=== PATIENT | female | born 1990 | race Caucasian/White ===

== ENCOUNTER 2016-12-11 17:55 | Outpatient (CLI) | payer MEDICAID ==
[~2016-12-11] VITALS: Ht 149.9 cm; Wt 82.1 kg
[~2016-12-11 17:55] MED LIST: ALPR0.5T PO; FERR-55 PO; NAPR-260 PO; PREN1TAB49 PO
[2016-12-11 18:16] VITALS: Ht 149.9 cm; Wt 82.1 kg
[2016-12-11 18:17] VITALS: BP 126/69; PULSE 91; RESP 19
[2016-12-11] MEDS ORDERED: LACTATED RINGER'S 1,000 ML IV SCH (18:30)
--- NOTE | 2016-12-11 18:54 | RADRPT ---
PROCEDURE: US OB biophysical profile. CLINICAL INDICATION: decreased movements, vaginal spotting TECHNIQUE: Multiple sonographic images of the pelvis were obtained. The images were reviewed on a PACS workstation. COMPARISON: No prior studies are available for comparison. FINDINGS: There is a single viable intrauterine gestation. Cardiac activity is present with 161 beats per min [place]. There is a vertex presentation. The placenta is anterior. There is no evidence of placental abruption. There is a normal amount of amniotic fluid with an STEFANIE = 13.8 cm. Biophysical profile: movement 2/2 tone 2/2. breathing 2/2 STEFANIE 2/2 Total 02/08 RPTAT: AA . IMPRESSION: Normal biophysical profile. . .Cosme Gordon MD, Date Time Electronically viewed and signed by .Cosme Gordon MD, MD on 12/11/2016 18:54 .S/
[2016-12-11 19:04] LABS: ADD SCAN DIFF NO
[2016-12-11 19:08] LABS: BASOPHILS % 0.1 % (0.0-2.0); EOSINOPHILS # 0.1 10^3/ul (0.0-0.5); EOSINOPHILS % 0.6 % (0.0-7.0); HEMATOCRIT 35.7 % (37.0-47.0); HEMOGLOBIN 11.6 g/dl (12.0-16.0); LYMPHOCYTES # 2.5 10^3/ul (0.8-2.9); LYMPHOCYTES % 31.4 % (15.0-51.0); MEAN CORPUSCULAR HGB CONC 32.5 g/dl (32.0-37.0); MEAN CORPUSCULAR VOLUME 92.2 fl (82.0-101.0); MEAN PLATELET VOLUME 10.7 fl (7.4-10.4); MONOCYTE # 0.5 10^3/ul (0.3-0.9); MONOCYTES % 6.9 % (0.0-11.0); NEUTROPHIL # 4.7 10^3/ul (1.6-7.5); NEUTROPHILS % 59.8 % (39.0-77.0); PLATELET COUNT 186 10^3/UL (140-415); RED BLOOD COUNT 3.87 10^6/ul (4.20-5.40); RED CELL DISTRIBUTION WIDTH 16.2 % (11.5-14.5); WHITE BLOOD COUNT 7.8 10^3/ul (4.8-10.8)
--- NOTE | 2016-12-11 20:10 | PN ---
Triage Information Date/Time Weeks of Gestation Patient is 6 para 4 at 36+3 weeks of gestation presents status post fall on her buttocks and decreased movement Patient did not hit her abdomen Prior OB history significant for 1 delivery at 29 weeks : 6 Para: 4 Diabetes: none Hypertention: none Objective Vital Signs Date Time Temp Pulse Resp B/P Pulse Ox O2 Delivery O2 Flow Rate FiO2 12/11/16 18:17 98.5 91 19 126/69 Room Air Exam NST is reactive [place] irregular Cervical exam per nurse soft and closed Results/Medications Result Diagram: 12/11/16 1840 Results 24 hrs Laboratory Tests Test 12/11/16 18:40 White Blood Count 7.8 Red Blood Count 3.87 L Hemoglobin 11.6 L Hematocrit 35.7 L Mean Corpuscular Volume 92.2 Mean Corpuscular Hemoglobin 30.0 Mean Corpuscular Hemoglobin Concent 32.5 Red Cell Distribution Width 16.2 H Platelet Count 186 Mean Platelet Volume 10.7 #H Neutrophils % 59.8 Lymphocytes % 31.4 Monocytes % 6.9 Eosinophils % 0.6 Basophils % 0.1 Nucleated Red Blood Cells % 0.0 Neutrophils # 4.7 Lymphocytes # 2.5 Monocytes # 0.5 Eosinophils # 0.1 Basophils # 0.0 Nucleated Red Blood Cells # 0.0 Blood type RH positive Medications Current Medications Lactated Ringer's (Lr) 1,000 ml @ 175 mls/hr [id number] IV Last administered on t 18:45; Admin Dose 175 MLS/HR; Start 12/11/16 at 18:30 Imaging Results PROCEDURE: US OB biophysical profile. CLINICAL INDICATION: decreased movements, vaginal spotting TECHNIQUE: Multiple sonographic images of the pelvis were obtained. The images were reviewed on a PACS workstation. COMPARISON: No prior studies are available for comparison. FINDINGS: There is a single viable intrauterine gestation. Cardiac activity is present with 161 beats per minute. There is a vertex presentation. The placenta is anterior. There is no evidence of placental abruption. There is a normal amount of amniotic fluid with an STEFANIE = 13.8 cm. Biophysical profile: movement 2/2 tone 2/2. breathing 2/2 STEFANIE 2/2 Total 02/08 RPTAT: AA . IMPRESSION: Normal biophysical profile. . .Cosme Gordon MD, Date Time Electronically viewed and signed by .Cosme Gordon MD, on 12/11/2016 18: 54 .S/ CC: MARG[facility] MD Assessment/Plan 36+3 weeks of gestation status post fall on her buttocks and decreased movement NST is reactive Biophysical profile 8 out of 8 Patient will be discharged home Instructed to follow-up with her DIRECTOR OF NURSING in 2-3 days MARGUERITE HEART MD Dec 11, 2016 20:10
--- NOTE | 2016-12-11 20:34 | TRIAGE ---
OB Triage Datetime Report Generated by CPN: 12/11/2016 20:34 Datetime: 12/11/2016 18:25 Stage of : OB Triage Labor Evaluation Frequency: 5-9 Monitor Mode: External Duration (sec)2399: 80-90 Quality: Moderate Pattern: Normal: <= 5 Contractions in 10 Minutes Resting Tone [place]: Relaxed Heart Rate FHR Baseline Rate: 165 Monitor Mode: External US Variability: Moderate 6-25 bpm Accelerations: 15X15 Decelerations: None Category: Category II Pain Assessment Pain Scale: 7 Pain Presence: Intermittent Pain Type: Pressure Pain Location: Abdomen Pain Relief Measures: Comfort Measures Datetime: 12/11/2016 18:20 Assessment Type: Triage Maternal Assessment Level of Consciousness: Fully Conscious DTR's/Clonus: DTRs 2+; No Clonus Headache: Denies Blurred Vision: No Respiratory Effort: Unlabored; Regular Rhythm; Equal Expansion Breath Sounds, Left: Clear and Equal Breath Sounds, Right: Clear and Equal Nausea/Vomiting: Denies RUQ Epigastric Pain: Denies Lower Extremities Edema: Bilateral Lower Extremities Degree: 1+ Upper Extremities Edema: None Facial Edema: None Fall Risk Assessment History of Falling: (0) No Secondary Diagnosis: (0) No Ambulatory Aid: (0) Bedrest/Nurse Assist IV Therapy: (0) No Gait: (0) Normal/Bedrest/Immobile Mental Status: (0) Oriented to Own Ability Fall Score: 0 Fall Risk Score Definition: No Risk: No action required Datetime: 12/11/2016 18:13 Stage of : OB Triage Datetime: 12/11/2016 18:05 Time of Arrival: 12/11/2016 17:51 EGA: 36.3 Arrived By: Ambulatory Arrived From: Home Chief Complaint: Small clots when she wipes and UCs after fall. Movement: Decreased Contractions: Irregular Time Contractions Began: 12/11/2016 07:00 Contractions: 5-9 Rupture of Membranes: Denies Vaginal Bleeding: Clots Vaginal Discharge: Present Recent Sexual Intercouse: Yes Abdominal Trauma: Fall Patient Complaints: Contractions; Other Additional Patient Complaints: Pressure when standing and walking Time Provider Notified: 12/11/2016 18:13 Provider Notified: Janice Initial Plan: EFM, Harry, Notify MD, monitor bleeding - Orders for BPP and IV start with Type _ Scre en and CBC to be done
== END 2016-12-11 20:33 | disposition home or self-care (01) ==
LOC: OBT 17:55 → L-D 17:57 → OBT 20:33
PROVIDERS: ATTEND Obstetrics & Gynecology
DX: O36.8130 Decreased fetal movements, third trimester, not applicable or unspecified (principal); Z3A.36 36 weeks gestation of pregnancy
CPT/HCPCS: 36415; 76818; 85025; 86850; 86900; 86901; 96360; J7120; Z7500; G0463

== ENCOUNTER 2016-12-17 20:25 | Outpatient (CLI) | payer MEDICAID ==
[~2016-12-17] VITALS: Ht 149.9 cm; Wt 82.1 kg
[~2016-12-17 20:25] MED LIST changes: -ALPR0.5T PO; -NAPR-260 PO
[2016-12-17 21:13] VITALS: Ht 149.9 cm; Wt 82.1 kg
[2016-12-17 21:15] VITALS: BP 122/71; PULSE 96; RESP 18
--- NOTE | 2016-12-17 23:02 | QN ---
Documentation Comment iup 36 weeks co of ucx vss exam wnl nst reactive a/p iup 37 weeks false labor [facility] HAN ALLISON MD Dec 17, 2016 23:02
--- NOTE | 2016-12-17 23:29 | RADRPT ---
PROCEDURE: OB ultrasound for biophysical profile CLINICAL INDICATION: tachycardia. TECHNIQUE: Multiple sonographic images of the gravid uterus performed. The images were reviewed on a PACS workstation. COMPARISON: 12/11/2016 FINDINGS: A single live intrauterine is identified with heart rate of 148 bpm. Fet us is in a cephalic presentation. Placenta is located fundal and anterior. Biophysical profile: breathing movement = 2/2 tone = 2/2 motion = 2/2 STEFANIE = 2/2 STEFANIE = 12.54 cm. IMPRESSION: 1. Single live intrauterine gestation. 2. Biophysical profile = 8/8. 3. STEFANIE = 12.54 cm. RPTAT: HMVK .Jose Fernandes MD, Date Time Electronically viewed and signed by .Jose Fernandes MD, MD on 12/17/2016 23:28 .K/
--- NOTE | 2016-12-17 23:42 | TRIAGE ---
OB Triage Datetime Report Generated by CPN: 12/17/2016 23:42 Datetime: 12/17/2016 22:52 Heart Rate FHR Baseline Rate: 145 Monitor Mode: External US FHR Baseline Changes: No Baseline Change Variability: Moderate 6-25 bpm Accelerations: 15X15 Datetime: 12/17/2016 22:03 Heart Rate FHR Baseline Rate: 145 Monitor Mode: External US Datetime: 12/17/2016 21:57 Stage of : OB Triage Datetime: 12/17/2016 21:34 Stage of : OB Triage Monitor Mode: External Quality: Mild Pattern: Normal: <= 5 Contractions in 10 Minutes Resting Tone [place]: Relaxed Heart Rate FHR Baseline Rate: 145 Monitor Mode: External US Variability: Moderate 6-25 bpm Accelerations: 15X15 Decelerations: None Datetime: 12/17/2016 21:04 Monitor Mode: External Quality: Mild Pattern: Normal: <= 5 Contractions in 10 Minutes Resting Tone [place]: Relaxed Heart Rate FHR Baseline Rate: 180 Monitor Mode: External US FHR Baseline Changes: Tachycardia Accelerations: 15X15 Decelerations: None Category: Category II Vaginal Exam Dilatation (cms): 1.5 Effacement (%): 80 Station: -1 Exam By: E Loc Membrane Status: Intact Amniotic Fluid Amount: None Amniotic Fluid Odor: None Vaginal Bleeding: None Cervix, Consistency: Soft Cervix, Position: Posterior Presentation 'A': Cephalic Datetime: 12/17/2016 20:56 Monitor Mode: External US Comments: Baby extremely overactive and difficult to monitor Datetime: 12/17/2016 20:43 Stage of : OB Triage Maternal Assessment Level of Consciousness: Fully Conscious Headache: Denies Blurred Vision: No Respiratory Effort: Unlabored Nausea/Vomiting: Denies RUQ Epigastric Pain: Denies Facial Edema: None Labor Evaluation Frequency: placed Monitor Mode: External Resting Tone [place]: Relaxed Monitor Mode: External US Comments: FHT 180 Pain Assessment Pain Scale: 8 Pain Presence: Intermittent Pain Type: Cramping; Pressure; Ache Pain Location: Abdomen; Back; Perineum Datetime: 12/17/2016 20:30 Time of Arrival: 12/17/2016 20:20 EGA: 37.2 Arrived By: Wheelchair Arrived From: Home Chief Complaint: [id number] w/ c/o vag pressure and back pain. Hx 29 wk delivery Movement: Present Contractions: Irregular Time Contractions Began: 12/17/2016 14:00 Contractions: q10 Rupture of Membranes: Denies Vaginal Bleeding: None Vaginal Discharge: Denies Recent Sexual Intercouse: Denies Abdominal Trauma: Not Applicable Patient Complaints: Cramping; Back Pain; Other Time Provider Notified: 12/17/2016 21:57 Provider Notified: Dr Spence Initial Plan: EFM,SVE,BPP Datetime: 12/11/2016 20:25 Stage of : OB Triage Datetime: 12/11/2016 20:02 Comments: Monitor off waiting for lab results Datetime: 12/11/2016 19:50 Vaginal Exam Dilatation (cms): 0.0 Effacement (%): 50 Station: -3 Exam By: Latasha Ramirez Status: Intact Vaginal Bleeding: None Cervix, Consistency: Soft Cervix, Position: Posterior Presentation 'A': Cephalic Datetime: 12/11/2016 19:44 Quality: Mild Pattern: Normal: <= 5 Contractions in 10 Minutes Resting Tone [place]: Relaxed Monitor Mode: External US Datetime: 12/11/2016 19:21 Stage of : OB Triage Maternal Assessment Level of Consciousness: Fully Conscious Headache: Denies Blurred Vision: No Nausea/Vomiting: Denies RUQ Epigastric Pain: Denies Monitor Mode: External Quality: Mild Pattern: Normal: <= 5 Contractions in 10 Minutes Resting Tone [place]: Relaxed Heart Rate FHR Baseline Rate: 140 Monitor Mode: External US FHR Baseline Changes: No Baseline Change Variability: Moderate 6-25 bpm Accelerations: 15X15 Decelerations: None Category: Category I Pain Assessment Pain Scale: 4 Pain Presence: Intermittent Pain Type: Cramping Pain Location: Abdomen Datetime: 12/11/2016 18:20 Fall Risk Assessment Fall Score: 0 Fall Risk Score Definition: No Risk: No action required Datetime: 12/11/2016 18:05 EGA: 36.3
== END 2016-12-17 23:51 | disposition home or self-care (01) ==
LOC: OBT 20:25 → L-D 20:25 → OBT 23:51
PROVIDERS: ATTEND Obstetrics & Gynecology
DX: O47.03 False labor before 37 completed weeks of gestation, third trimester (principal); O76 Abnormality in fetal heart rate and rhythm complicating labor and delivery; Z3A.36 36 weeks gestation of pregnancy
CPT/HCPCS: 76818; Z7500; G0463

== ENCOUNTER 2016-12-20 21:26 | Outpatient (CLI) | payer MEDICAID ==
[~2016-12-20] VITALS: Ht 149.9 cm; Wt 82.8 kg
[2016-12-20 21:52] VITALS: BP 134/75; PULSE 82; RESP 18; Ht 149.9 cm; Wt 82.8 kg
--- NOTE | 2016-12-20 22:35 | RADRPT ---
PROCEDURE: OB ultrasound CLINICAL INDICATION: . OB ultrasound with fluid volume assessment. TECHNIQUE: Sonographic evaluation to assess the amniotic fluid volume was performed. Transabdomin al imaging of the gravid uterus was performed. COMPARISON: 12/17/2016 FINDINGS: The amniotic fluid index equals approximately 11.8 cm. heart rate: 158 Beats per minute. Presentation: Cephalic Placenta anterior IMPRESSION: Amniotic fluid index equals 11.8 cm. RPTAT: AADD .Fidel Muniz MD, MD Date Time Electronically viewed and signed by .Fidel Muniz MD, on 12/20/2016 22:35 .B/
--- NOTE | 2016-12-21 02:28 | TRIAGE ---
OB Triage Datetime Report Generated by CPN: 12/21/2016 02:28 Datetime: 12/21/2016 00:46 Labor Evaluation Frequency: IRREGULAR Monitor Mode: External Duration (sec)2399: 60-80 Quality: Mild Pattern: Normal: <= 5 Contractions in 10 Minutes Resting Tone [place]: Relaxed Heart Rate FHR Baseline Rate: 145 Monitor Mode: External US FHR Baseline Changes: No Baseline Change Variability: Moderate 6-25 bpm Accelerations: 15X15 Decelerations: None Category: Category I Datetime: 12/21/2016 00:00 Labor Evaluation Frequency: IRREGULAR Monitor Mode: External Duration (sec)2399: 100 Quality: Mild Pattern: Normal: <= 5 Contractions in 10 Minutes Resting Tone [place]: Relaxed Heart Rate FHR Baseline Rate: 135 Monitor Mode: External US FHR Baseline Changes: No Baseline Change Variability: Moderate 6-25 bpm Accelerations: 15X15 Decelerations: None Category: Category I Datetime: 12/20/2016 22:48 Labor Evaluation Frequency: IRREGULAR Monitor Mode: External Duration (sec)2399: 100 Quality: Mild Pattern: Normal: <= 5 Contractions in 10 Minutes Resting Tone [place]: Relaxed Heart Rate FHR Baseline Rate: 155 Monitor Mode: External US FHR Baseline Changes: No Baseline Change Variability: Moderate 6-25 bpm Accelerations: 15X15 Decelerations: None Category: Category I Datetime: 12/20/2016 22:15 Vaginal Exam Dilatation (cms): 2.0 Effacement (%): 80 Station: -3 Exam By: Nano PORTER RN Vaginal Bleeding: None Cervix, Consistency: Soft Cervix, Position: Posterior Datetime: 12/20/2016 22:00 Labor Evaluation Frequency: IRREGULAR Labor Evaluation Frequency: 0 Monitor Mode: External Duration (sec)2399: 60-100 Quality: Mild Pattern: Normal: <= 5 Contractions in 10 Minutes Resting Tone [place]: Relaxed Heart Rate FHR Baseline Rate: 155 Monitor Mode: External US FHR Baseline Changes: No Baseline Change Variability: Moderate 6-25 bpm Accelerations: 15X15 Decelerations: None Category: Category I Datetime: 12/20/2016 21:56 Comments: DUE TO PT SIZE FHT DIFFICULT TO TRACE Datetime: 12/20/2016 21:48 Stage of : OB Triage Time of Arrival: 12/21/2016 21:20 EGA: 37.6 Arrived By: Wheelchair Arrived From: Home Chief Complaint: CONTRACTIONS Movement: Present Time Contractions Began: 12/20/2016 12:00 Rupture of Membranes: Denies Vaginal Bleeding: Small Vaginal Discharge: Denies Recent Sexual Intercouse: Denies Abdominal Trauma: Not Applicable Time Provider Notified: 12/21/2016 21:30 Provider Notified: DR PRECIADO Initial Plan: CALL BECKY ALEXANDRE Maternal Assessment Level of Consciousness: Fully Conscious DTR's/Clonus: DTRs 2+; No Clonus Headache: Denies Blurred Vision: No Respiratory Effort: Unlabored; Regular Rhythm; Equal Expansion Breath Sounds, Left: Clear and Equal Breath Sounds, Right: Clear and Equal Nausea/Vomiting: Denies RUQ Epigastric Pain: Denies Lower Extremities Edema: Bilateral Lower Extremities Degree: None Upper Extremities Edema: None Degree: None Facial Edema: None Temperature Route: Oral Fall Risk Assessment History of Falling: (0) No Secondary Diagnosis: (0) No Ambulatory Aid: (0) Bedrest/Nurse Assist IV Therapy: (0) No Gait: (0) Normal/Bedrest/Immobile Mental Status: (0) Oriented to Own Ability Fall Score: 0 Fall Risk Score Definition: No Risk: No action required Monitor Mode: External Monitor Mode: External US Pain Assessment Pain Scale: 8 Pain Presence: Intermittent Pain Type: Contraction Pain Location: Abdomen; Back Datetime: 12/17/2016 20:30 EGA: 37.2 Datetime: 12/11/2016 18:20 Fall Score: 0 Fall Risk Score Definition: No Risk: No action required Datetime: 12/11/2016 18:05 EGA: 36.3
== END 2016-12-21 00:50 | disposition home or self-care (01) ==
LOC: OBT 21:26 → L-D 21:27 → OBT 12-21 00:50
PROVIDERS: ATTEND Obstetrics & Gynecology
DX: O62.9 Abnormality of forces of labor, unspecified (principal); Z3A.38 38 weeks gestation of pregnancy; O26.893 Other specified pregnancy related conditions, third trimester; R10.9 Unspecified abdominal pain
CPT/HCPCS: 76815; Z7500; G0463

== ENCOUNTER 2016-12-23 17:35 | Inpatient (IN) | payer MEDICAID ==
[~2016-12-23] VITALS: Ht 149.9 cm; Wt 82.2 kg
[2016-12-23 18:05] VITALS: Ht 149.9 cm; Wt 82.2 kg
[2016-12-23 18:06] VITALS: BP 119/70; PULSE 79
--- NOTE | 2016-12-23 18:28 | CONS ---
Date/Time of Note Date/Time of Note DATE: 12/23/16 TIME: 18:18 Consultation Date/Type/Reason Admit Date/Time Dec 23, 2016 at 18:13 Triage consult Reason for Consultation This patient is 26 years old 6 para 4 1 living 4 with 2 date of January 08, 2017 which makes her 37 weeks and 6 days now She is complaining of contractions On pelvic examination cervix is about 4-5 weeks dilated membrane is intact for this reason she will be admitted in the labor delivery room for observation and possible delivery Hx of Present Illness Current Medications Medications (Trade) Dose Ordered Sig/Pamela Route PRN Reason Start Time Stop Time Status Last Admin Dose Admin Lactated Ringer's (Lr) 1,000 ml @ 125 mls/hr Q8H IV 12/23/16 18:07 UNV Butorphanol Tartrate (Stadol) 1 mg Q2H PRN IV PAIN 12/23/16 18:30 UNV Butorphanol Tartrate (Stadol) 2 mg Q2H PRN IV PAIN 12/23/16 18:30 UNV Lidocaine 30 ml 30 ml ONCE PRN INJ EPISIOTOMY/TEARING 12/23/16 18:30 UNV Lactated Ringer's 1,000 ml @ 2,000 mls/hr Q30M PRN IV PRE-EPIDURAL BOLUS 12/23/16 18:30 UNV Oxytocin/Lactated Ringer's 500 ml @ 0 mls/hr ONCE PRN IV For Hemorrhage Management 12/23/16 18:30 UNV Methylergonovine Maleate (Methergine) 0.2 mg ONCE PRN IM VAGINAL BLEEDING 12/23/16 18:30 UNV Carboprost Tromethamine (Hemabate) 250 mcg ONCE PRN IM VAGINAL BLEEDING 12/23/16 18:30 UNV Misoprostol (Cytotec) 1,000 mcg ONCE PRN MN VAGINAL BLEEDING 12/23/16 18:30 UNV Constitutional: No chills, No diaphoresis, No disoriented, No febrile, No improved, No no complaints, No other, No poor po, No requiring IVF, No requiring O2 Eyes: No discharge, No no complaints, No other, No pain, No redness, No visual change ENT: No bleeding, No congestion, No discharge, No dysphagia, No no complaints, No other, No pain, No sore throat Respiratory: No cough, No no complaints, No other, No pain, No pleuritic pain, No shortness of breath, No sputum, No wheezing Cardiovascular: No chest pain, No edema, No lightheadedness, No no complaints, No orthopenea, No other, No palpitations, No paroxysmal nocturnal dyspnea Gastrointestinal: No blood, No constipation, No decreased appetite, No diarrhea , No flatus, No nausea, No no complaints, No other, No pain, No passing stool, No vomiting Genitourinary: other (Cervix is 4-5 cm dilated 60-70% effaced about -2 station with intact membranes), No bleeding, No discharge, No dysuria, No flank pain, No hematuria, No no complaints Additional Comments She has gestational diabetes mellitus which is diet-controlled came. Came in with the contractions Her past deliveries were all spontaneous vaginal without any complications In reviewing her lab works during this course ,they are all normal except for gestational diabetes, blood type is O+, VDRL is negative and the rest of the tests are within normal limits Plan : we will keep her in labor delivery room; If she is in labor will deliver her other than that she might be discharged to return when in active labor Social History Smoking Status: Never smoker Exam/Review of Systems Vital Signs Vitals Vital Signs Date Time Temp Pulse Resp B/P Pulse Ox O2 Delivery O2 Flow Rate FiO2 12/23/16 18:06 98.2 79 119/70 Medications Medications Current Medications Lactated Ringer's (Lr) 1,000 ml @ 125 mls/hr Q8H IV ; Start 12/23/16 at 18:07; Status UNV Butorphanol Tartrate (Stadol) 1 mg Q2H PRN IV PAIN; Start 12/23/16 at 18:30; Status UNV Butorphanol Tartrate (Stadol) 2 mg Q2H PRN IV PAIN; Start 12/23/16 at 18:30; Status UNV Lidocaine 30 ml 30 ml ONCE PRN INJ EPISIOTOMY/TEARING; Start 12/23/16 at 18:30; Status UNV Lactated Ringer's 1,000 ml @ 2,000 mls/hr Q30M PRN IV PRE-EPIDURAL BOLUS; Start 12/23/16 at 18:30; Status UNV Oxytocin/Lactated Ringer's 500 ml @ 0 mls/hr ONCE PRN IV For Hemorrhage Management; Start 12/23/16 at 18:30; Status UNV Methylergonovine Maleate (Methergine) 0.2 mg ONCE PRN IM VAGINAL BLEEDING; Start 12/23/16 at 18:30; Status UNV Carboprost Tromethamine (Hemabate) 250 mcg ONCE PRN IM VAGINAL BLEEDING; Start 12/23/16 at 18:30; Status UNV Misoprostol (Cytotec) 1,000 mcg ONCE PRN [place] VAGINAL BLEEDING; Start 12/23/16 at 18:30; Status UNV MATEUSZ LU MD Dec 23, 2016 18:28
[2016-12-23] MEDS ORDERED: BUTORPHANOL 2 MG INJ IV PRN ×2 (18:30)
[2016-12-23] MEDS ORDERED: LACTATED RINGER'S 1,000 ML IV PRN (18:30)
[2016-12-23] MEDS ORDERED: OXYTOCIN 30 UNITS/LR 500 ML IV PRN (18:30)
[2016-12-23] MEDS ORDERED: MISOPROSTOL 200 MCG TAB PR PRN (18:30)
[2016-12-23] MEDS ORDERED: LIDOCAINE 1% (MPF) 30 ML INJ INJ PRN (18:30)
[2016-12-23] MEDS ORDERED: CARBOPROST 250 MCG INJ IM PRN (18:30)
[2016-12-23] MEDS ORDERED: METHYLERGONOVINE 0.2 MG INJ IM PRN (18:30)
[2016-12-23 19:19] LABS: ADD SCAN DIFF NO
[2016-12-23 19:20] LABS: BASOPHILS % 0.3 % (0.0-2.0); EOSINOPHILS % 0.4 % (0.0-7.0); HEMATOCRIT 34.8 % (37.0-47.0); HEMOGLOBIN 11.4 g/dl (12.0-16.0); LYMPHOCYTES # 2.1 10^3/ul (0.8-2.9); LYMPHOCYTES % 27.8 % (15.0-51.0); MEAN CORPUSCULAR HEMOGLOBIN 29.4 pg (29.0-33.0); MEAN CORPUSCULAR HGB CONC 32.8 g/dl (32.0-37.0); MEAN CORPUSCULAR VOLUME 89.7 fl (82.0-101.0); MONOCYTE # 0.4 10^3/ul (0.3-0.9); MONOCYTES % 5.8 % (0.0-11.0); NEUTROPHIL # 4.8 10^3/ul (1.6-7.5); PLATELET COUNT 208 10^3/UL (140-415); RED BLOOD COUNT 3.88 10^6/ul (4.20-5.40); RED CELL DISTRIBUTION WIDTH 15.4 % (11.5-14.5); WHITE BLOOD COUNT 7.4 10^3/ul (4.8-10.8)
[2016-12-23 19:36] LABS: PROTIME 13.2 Sec (12.2-14.2)
[2016-12-23 19:37] LABS: PARTIAL THROMBOPLASTIN TIME 26.4 Sec (25.0-35.0)
[2016-12-23] MEDS: LACTATED RINGER'S 1,000 ML IV SCH ×2 (20:06→22:46)
[2016-12-23] MEDS ORDERED: OXYTOCIN 30 UNITS/LR 500 ML IV SCH ×2 (22:00)
[2016-12-24] MEDS ORDERED: FENTAnyl 2MCG/ML-ROPIV 0.2% 100 ML ONE (05:13)
[2016-12-24] MEDS ORDERED: ONDANSETRON 4 MG INJ IV PRN (05:30)
[2016-12-24] MEDS ORDERED: DIPHENHYDRAMINE 50 MG INJ IV PRN (05:30)
[2016-12-24] MEDS ORDERED: NALOXONE (0.4 MG/ML) INJ IV PRN (05:30)
[2016-12-24] MEDS: LACTATED RINGER'S 1,000 ML IV SCH ×2 (06:07→17:10)
[2016-12-24] MEDS ORDERED: OXYTOCIN 30 UNITS/LR 500 ML IV SCH (11:00)
[2016-12-24] MEDS: DEXTROSE 5%-LR 1,000 ML IV SCH (11:11)
[2016-12-24] MEDS ORDERED: ACCU-CHEK XX SCH (13:00)
[2016-12-24] MEDS: FENTAnyl 2MCG/ML-ROPIV 0.2% 100 ML BAG EPI SCH (15:44)
[2016-12-25] MEDS: FENTAnyl 2MCG/ML-ROPIV 0.2% 100 ML BAG EPI SCH (00:43)
[2016-12-25] MEDS: DEXTROSE 5%-LR 1,000 ML IV SCH ×3 (03:00→11:00)
[2016-12-25] MEDS: LACTATED RINGER'S 1,000 ML IV SCH ×2 (05:39→10:07)
--- NOTE | 2016-12-25 09:59 | LDN ---
Date/Time of Note Date/Time of Note DATE: 12/25/16 TIME: 09:52 Delivery Summary of a baby girl from OA position,cord clamped after stopped pulsation , placenta spontaneous expulsion inspected compelet,no laceration blood loss 250 ml Weeks of Gestation 37 weeks 6/7 days Placenta Delivered: Spontaneously Meconium: none Episiotomy: No Laceration repair: none Anesthesia type: Epidural Estimated blood loss: 250 Sponge & Needle done & correct: Yes All needle counts correct: Yes Any foreign bodies felt in the: No Problems: Delivery Information Sex Infant Sex: female Apgars 1 Minute: 9 5 Minute: 9 Suctioning Nose & mouth suctioned at [place]: Yes Delee suction performed: No Umbilical Cord Umbilical cord with: 3 Vessels Cord Blood was obtained: Yes NEY BUTTS MD Dec 25, 2016 09:59
--- NOTE | 2016-12-25 10:09 | HP ---
Date/Time of Note Date/Time of Note DATE: 12/25/16 TIME: 10:01 OB - History Hx of Present Free Text/Dictation 26 y/o 04eswtw2/7days admitted in labor pelvic exam on admission cx 4cm 60%-2 station mid to moderate contraction Chief Complaint: labor pain Estimated Due Date: Jan 08, 2017 : 6 Para: 4 Spontaneous : 1 Care: Limited Care Ultrasounds: Normal mid trimester US Obstetrical Complications: Gestational Diabetes Medical Complications: Respiratory Past Family/Social History * Past Medical, Surgical, Family and Obstetric Histories reviewed from chart. Rubella: immune RPR/VDRL: Negative GBS Status: Unknown OB Admission Exam Vital Signs Vital Signs Vital Signs Date Time Temp Pulse Resp B/P Pulse Ox O2 Delivery O2 Flow Rate FiO2 12/23/16 18:06 98.2 79 119/70 Physical Exam Heart: Rhythm Normal Lungs: Clear, Equal Abdomen: WNL Extremities: Normal Reflexes: Normal Cervical Dilatation: 4cm Effacement: 50% Station: -2 Membranes: Intact Heart Rate: 130's Accelerations: Accelerations Present Decelerations: No Decelerations Varibility: Moderate Contractions on Admission: 6-10 Minutes Apart Intensity: Moderate Last 72 hourBlood Glucose Bedside Glucose - 72 Hours Test 12/23/16 22:35 12/23/16 23:43 12/24/16 10:18 12/24/16 13:12 Bedside Glucose 65mg/dL (70-220) L 69mg/dL (70-220) L 70mg/dL (70-220) 139mg/dL (70-220) Test 12/24/16 17:13 12/24/16 21:05 12/25/16 00:50 12/25/16 05:33 Bedside Glucose 69mg/dL (70-220) L 104mg/dL (70-220) 99mg/dL (70-220) 82mg/dL (70-220) Test 12/25/16 09:18 Bedside Glucose 90mg/dL (70-220) Last 72 hours Lab Results CBC & BMP 12/23/16 18:45 OB Assessment/Plan Plan: Other (vaginal delivery) NEY BUTTS MD Dec 25, 2016 10:09
[2016-12-25] MEDS: IBUPROFEN 600 MG TAB GTB SCH ×2 (11:53→18:19)
[2016-12-25 12:00] VITALS: BP 126/77; PULSE 61; RESP 18
[2016-12-25] MEDS ORDERED: DIBUCAINE 1% 30 GM OINT PR PRN (12:30)
[2016-12-25] MEDS ORDERED: ONDANSETRON 4 MG INJ IV PRN (12:30)
[2016-12-25] MEDS ORDERED: LANOLIN 7 GM TUBE TOP PRN (12:30)
[2016-12-25] MEDS ORDERED: BENZOCAINE 20% 56 ML SPRAY TOP PRN (12:30)
[2016-12-25] MEDS ORDERED: ACETAMINOPHEN/CODEINE #3 TAB PO PRN ×2 (12:30)
[2016-12-25] MEDS ORDERED: WITCH HAZEL/GLYCERIN PAD PR PRN (12:30)
[2016-12-25] MEDS ORDERED: ACETAMINOPHEN 325 MG TAB PO PRN (12:30)
[2016-12-25] MEDS ORDERED: OXYCODONE/ASPIRIN (4.88/325) TAB PO PRN ×2 (12:30)
[2016-12-25] MEDS: OXYTOCIN 30 UNITS/LR 500 ML IV SCH ×2 (13:51→16:27)
[2016-12-25] MEDS ORDERED: IBUPROFEN 600 MG TAB PO SCH (18:00)
[2016-12-25 19:40] VITALS: BP 116/70; PULSE 64; RESP 17
[2016-12-25] MEDS: SENNA/DOCUSATE NA (8.6MG/50MG) TAB PO SCH (21:46)
[2016-12-26] MEDS: IBUPROFEN 600 MG TAB GTB SCH ×4 (00:07→17:54)
[2016-12-26 04:00] VITALS: BP 116/73; PULSE 67; RESP 18
[2016-12-26 07:33] LABS: ADD SCAN DIFF NO
[2016-12-26 07:59] LABS: BASOPHILS % 0.1 % (0.0-2.0); EOSINOPHILS # 0.1 10^3/ul (0.0-0.5); EOSINOPHILS % 1.1 % (0.0-7.0); HEMATOCRIT 32.3 % (37.0-47.0); HEMOGLOBIN 10.1 g/dl (12.0-16.0); LYMPHOCYTES # 2.7 10^3/ul (0.8-2.9); LYMPHOCYTES % 36.1 % (15.0-51.0); MEAN CORPUSCULAR HEMOGLOBIN 28.9 pg (29.0-33.0); MEAN CORPUSCULAR HGB CONC 31.3 g/dl (32.0-37.0); MEAN CORPUSCULAR VOLUME 92.3 fl (82.0-101.0); MONOCYTE # 0.5 10^3/ul (0.3-0.9); MONOCYTES % 6.4 % (0.0-11.0); NEUTROPHIL # 4.2 10^3/ul (1.6-7.5); NEUTROPHILS % 55.6 % (39.0-77.0); PLATELET COUNT 165 10^3/UL (140-415); RED CELL DISTRIBUTION WIDTH 15.6 % (11.5-14.5); WHITE BLOOD COUNT 7.5 10^3/ul (4.8-10.8)
[2016-12-26 08:45] VITALS: BP 133/81; PULSE 65; RESP 16
[2016-12-26] MEDS: SENNA/DOCUSATE NA (8.6MG/50MG) TAB PO SCH (09:35)
--- NOTE | 2016-12-26 12:17 | PN ---
Date/Time of Note Date/Time of Note DATE: 12/26/16 TIME: 12:15 OB Subjective Subjective Subjective Afebrile blood pressure 152/87 no complaint of headache blurry vision epigastric pain no history of preeclampsia during the antepartum, workup for PIH ordered plan pending the report NEY BUTTS MD Dec 26, 2016 12:16
[2016-12-26 12:19] VITALS: BP 152/87; PULSE 75; RESP 20
[2016-12-26 14:15] LABS: ADD SCAN DIFF NO
[2016-12-26 14:21] LABS: BASOPHILS % 0.1 % (0.0-2.0); EOSINOPHILS # 0.1 10^3/ul (0.0-0.5); HEMATOCRIT 33.2 % (37.0-47.0); HEMOGLOBIN 10.8 g/dl (12.0-16.0); LYMPHOCYTES % 29.2 % (15.0-51.0); MEAN CORPUSCULAR HEMOGLOBIN 29.5 pg (29.0-33.0); MEAN CORPUSCULAR HGB CONC 32.5 g/dl (32.0-37.0); MEAN CORPUSCULAR VOLUME 90.7 fl (82.0-101.0); MEAN PLATELET VOLUME 10.9 fl (7.4-10.4); MONOCYTE # 0.5 10^3/ul (0.3-0.9); MONOCYTES % 6.5 % (0.0-11.0); NEUTROPHIL # 4.3 10^3/ul (1.6-7.5); NEUTROPHILS % 62.3 % (39.0-77.0); PLATELET COUNT 179 10^3/UL (140-415); RED BLOOD COUNT 3.66 10^6/ul (4.20-5.40); RED CELL DISTRIBUTION WIDTH 15.4 % (11.5-14.5)
[2016-12-26 14:24] LABS: ADD UMIC YES; UR ASCORBIC ACID NEGATIVE (NEGATIVE); UR BILIRUBIN (Dip) NEGATIVE (NEGATIVE); UR BLOOD (Dip) 3+ mg/dL (NEGATIVE); UR CLARITY CLEAR (CLEAR); UR COLOR STRAW (YELLOW); UR GLUCOSE (Dip) NEGATIVE (NEGATIVE); UR KETONES (Dip) NEGATIVE (NEGATIVE); UR LEUKOCYTE ESTERASE (Dip) TRACE Leu/ul (NEGATIVE); UR NITRITE (Dip) NEGATIVE (NEGATIVE); UR RBC 17 /HPF (0-5); UR SPECIFIC GRAVITY (Dip) 1.005 (1.003-1.030); UR TOTAL PROTEIN (Dip) NEGATIVE (NEGATIVE); UR UROBILINOGEN (Dip) NEGATIVE (NEGATIVE)
[2016-12-26 15:50] VITALS: BP 153/82; PULSE 62; RESP 17
[2016-12-26 15:54] LABS: ALBUMIN 3.9 g/dl (3.3-4.9); ALBUMIN/GLOBULIN RATIO 1.5; CALCIUM 9.7 mg/dl (8.4-10.2); CREATININE 0.63 mg/dl (0.44-1.00); POTASSIUM 4.2 mmol/L (3.5-5.1); TOTAL PROTEIN 6.5 g/dl (6.1-8.1)
[2016-12-26 15:56] LABS: TOTAL PROTEIN 6.3 g/dl (6.1-8.1)
[2016-12-27] MEDS ORDERED: MEASLES,MUMPS,RUBELLA VACCINE INJ SC* ONE (09:00)
== END 2016-12-26 18:25 | disposition home or self-care (01) | DRG 775 ==
LOC: OBT 17:35 → L-D 17:35 → OBT 18:10 → L-D 18:13 → PP1 12-25 12:17
PROVIDERS: ADMIT Obstetrics & Gynecology; ATTEND Obstetrics & Gynecology
PROC: 10E0XZZ Delivery of Products of Conception, External Approach (ICD-10-PCS; principal; 2016-12-25)
DX: O24.429 Gestational diabetes mellitus in childbirth, unspecified control (principal); Z37.0 Single live birth; Z3A.37 37 weeks gestation of pregnancy
CPT/HCPCS: 62319; 80053; 80076; 81001; 82947; 82962; 84560; 85025; 85610; 85730; 86592; 86900; 86901; G0463; J1200; J2590; J3010; J7120; J7121

== ENCOUNTER 2016-12-27 20:30 | Emergency (ER) | payer MEDICAID ==
[~2016-12-27] VITALS: Ht 152.4 cm; Wt 78.0 kg
[2016-12-27 20:33] VITALS: Ht 152.4 cm; Wt 78.0 kg
--- NOTE | 2016-12-27 21:50 | ERA ---
ER Documentation Chief Complaint Date/Time DATE: 12/27/16 TIME: 21:47 Chief Complaint requesting lab work- 24 urind collection pt has urine by herself HPI This is a 26-year-old female who was sent by PCP. Patient is and 1 week status post vaginal delivery. Patient had high blood pressure PCP visit. Was sent here for 24 hour urine test. Patient denies any other symptoms including headache, abdominal pain, photophobia or other vision changes. Describes no other associated manifestations. There were no complications during her except for gestational diabetes. No history of hypertension. ROS All systems reviewed and are negative except as per history of present illness. Medications Home Meds Reported Medications Ferrous Sulfate* (Ferrous Sulfate*) 325 Mg Tablet, 325 MG PO DAILY 12/17/12 Vits W-Ca,Fe,Fa(<1MG) () 1 Tab Tablet, 1 TAB PO 03/16/12 Allergies Allergies: Coded Allergies: No Known Allergy (Verified , 12/23/16) PMhx/Soc History of Surgery: Yes (SURGERY TO LEFT BREAST) Anesthesia Reaction: No Hx Neurological Disorder: No Hx Respiratory Disorders: No Hx Cardiac Disorders: No Hx Psychiatric Problems: Yes (ANXIETY) Hx Miscellaneous Medical Probl: No Hx Alcohol Use: No Hx Substance Use: No Hx Tobacco Use: No Smoking Status: Never smoker Physical Exam Vitals Vital Signs Date Time Temp Pulse Resp B/P Pulse Ox O2 Delivery O2 Flow Rate FiO2 12/27/16 20:33 65 20 153/93 98 Physical Exam Const: Well-appearing overweight 26-year-old female in no acute distress Head: Atraumatic Eyes: Normal Conjunctiva ENT: Normal External Ears, Nose and Mouth. Neck: Full range of motion..~ No meningismus. Resp: Clear to auscultation bilaterally Cardio: Regular rate and rhythm, no murmurs Abd: Soft, non tender, non distended. Normal bowel sounds Skin: No petechiae or rashes Back: No midline or flank tenderness Ext: Mild nonpitting edema. No cyanosis, Neur: Awake and alert. Patellar DTRs 2+ bilaterally. No clonus. Psych: Normal Mood and Affect Procedures/MDM This is a 18-year-old female presenting for hypertension 1 week status post vaginal delivery as described in history and physical examination. Patient's PCP was requesting a 24 hour urine. I will go ahead and get a urine dip. RN he came and told me she told the patient that we do not do 24-hour urines so the patient has left. Departure Diagnosis: Primary Impression: Encounter for laboratory test Condition: Stable Additional Instructions: Patient VARSHA Mcknight PA-C Dec 27, 2016 21:50
== END 2016-12-27 21:47 | disposition left against medical advice (07) ==
LOC: FTE 20:30
DX: Z00.00 Encounter for general adult medical examination without abnormal findings (principal)
CPT/HCPCS: 99282

== ENCOUNTER 2017-03-19 14:43 | Emergency (ER) | payer MEDICAID ==
[~2017-03-19] VITALS: Ht 149.9 cm; Wt 76.5 kg
[2017-03-19 14:44] VITALS: Ht 149.9 cm; Wt 76.5 kg
--- NOTE | 2017-03-19 15:27 | ERD ---
ER Documentation Chief Complaint Date/Time DATE: 03/19/17 TIME: 15:26 Chief Complaint LEFT CHEST PAIN SINCE LAST NIGHT HPI This a 26-year-old female presents emergency department today complaining of left-sided chest pain for the past 3 days. States that 2 years ago she had an anxiety attack. States is not taking any medication for the pain because she is breast-feeding and was unsure what she could take. States she has pain with deep inspiration. Denies any fevers or chills or cough. Denies any prolonged or foreign travel.Denies cigarette smoking. ROS All systems reviewed and are negative except as per history of present illness. Medications Home Meds Active Scripts Acetaminophen* (Tylophen*) 500 Mg Capsule, 1 CAP PO Q6H Y for PAIN AND OR ELEVATED TEMP, #30 CAP Prov:TARIQ DAVIS PA-C 03/19/17 Naproxen* (Naprosyn*) 500 Mg Tablet, 500 MG PO BID Y for PAIN AND/OR INFLAMMATION, #30 TAB Prov:TARIQ DAVIS PA-C 03/19/17 Reported Medications Ferrous Sulfate* (Ferrous Sulfate*) 325 Mg Tablet, 325 MG PO DAILY 12/17/12 Vits W-Ca,Fe,Fa(<1MG) () 1 Tab Tablet, 1 TAB PO 03/16/12 Allergies Allergies: Coded Allergies: No Known Allergy (Verified , 03/19/17) PMhx/Soc History of Surgery: Yes (SURGERY TO LEFT BREAST) Anesthesia Reaction: No Hx Neurological Disorder: No Hx Respiratory Disorders: No Hx Cardiac Disorders: No Hx Psychiatric Problems: Yes (ANXIETY) Hx Miscellaneous Medical Probl: No Hx Alcohol Use: No Hx Substance Use: No Hx Tobacco Use: No Physical Exam Vitals Vital Signs Date Time Temp Pulse Resp B/P Pulse Ox O2 Delivery O2 Flow Rate FiO2 03/19/17 14:44 98.0 80 20 134/75 99 Physical Exam Const: pleasant, NAD Head: Atraumatic Eyes: Normal Conjunctiva ENT: Normal External Ears, Nose and Mouth. Neck: Full range of motion..~ No meningismus. Resp: Clear to auscultation bilaterally. No absent breath sounds. No wheezing.Mild tenderness palpation left side of chest wall. Cardio: Regular rate and rhythm, no murmurs Abd: Soft, non tender, non distended. Normal bowel sounds Skin: No petechiae or rashes Back: No midline or flank tenderness Ext: No cyanosis, or edema Neur: Awake and alert Psych: Normal Mood and Affect Results 24 hrs Current Medications Medications (Trade) Dose Ordered Sig/Pamela Route PRN Reason Start Time Stop Time Status Last Admin Dose Admin Ibuprofen (Motrin) 800 mg ONCE ONCE PO 03/19/17 15:30 03/19/17 15:31 DC 03/19/17 16:25 DIAGNOSTIC IMAGING REPORT Patient: AUREA COOPER : 1990 Age: 26 Sex: F MR #: [id number] DOS: 03/19/17 0000 Ordering MD: TARIQ DAVIS PA-C Location: [facility] Room/Bed: PROCEDURE: XR Chest. CLINICAL INDICATION: Chest pain. TECHNIQUE: XR Chest 1 View> COMPARISON: None available. FINDINGS: The lungs are clear. No focal opacification is seen. No pneumothorax or pleural effusion is seen. The cardiomediastinal silhouette is unremarkable. The osseous structures are grossly unremarkable. IMPRESSION: No evidence of acute cardiopulmonary disease. RPTAT: QQ .Emil Lamas MD MD Date Time Electronically viewed and signed by .Emil Lamas MD, MD on 03/19/2017 16:27 .A/ CC: TARIQ DAVIS PA-C Procedures/MDM This is a 26-year-old female who presents to the emergency department today complaining of left-sided chest pain for the past 3 days. Patient is afebrile and otherwise well-appearing however she was complaining of some pain with deep inspiration therefore did obtain a chest x-ray as well as EKG. EKG read and interpreted by Dr. Fischer. Rate [address] elevation. No QT prolongation. Normal sinus rhythm. Low suspicion for acute VT, PE, pericarditis. CXR is negative. There is no focal opacification, pneumothorax or pleural effusion. Low suspicion for pneumonia, PE, abscess, pleural effusion, pneumothorax. Patient symptoms at this time is consistent with chest wall pain likely costochondritis however may be also anxiety related symptoms. I do not feel the patient would benefit from benzodiazepines at this time. Patient was given Motrin here in the emergency departmenta and she stated pain improved. She will be given a prescription for Naprosyn and Tylenol for home. At this time the patient is stable for discharge and outpatient management. Patient should follow up with their PCP in the next 1-2 days. They may return to the emergency department sooner for any persistent or worsening of symptoms. Patient understood and agreed with the plan. Departure Diagnosis: Primary Impression: Chest pain Chest pain type: unspecified Qualified Code: R07.9 - Chest pain, unspecified type Condition: Fair TARIQ DAVIS PA-C Mar 19, 2017 15:27
[2017-03-19] MEDS ORDERED: IBUPROFEN 800 MG TAB PO ONE (15:30)
--- NOTE | 2017-03-19 16:27 | RADRPT ---
PROCEDURE: XR Chest. CLINICAL INDICATION: Chest pain. TECHNIQUE: XR Chest 1 View> COMPARISON: None available. FINDINGS: The lungs are clear. No focal opacification is seen. No pneumothorax or pleural effusion is seen. The cardiomediastinal silhouette is unremarkable. The osseous structures are grossly unremarkable. IMPRESSION: No evidence of acute cardiopulmonary disease. RPTAT: QQ .Emil Lamas MD, MD Date Time Electronically viewed and signed by .Emil Lamas MD, on 03/19/2017 16:27 .A/
[2017-03-19] MEDS ORDERED: NAPR-260 PO (16:57)
[2017-03-19] MEDS ORDERED: ACET500C5 PO (16:57)
== END 2017-03-19 17:14 | disposition home or self-care (01) ==
LOC: FTE 14:43
DX: R07.9 Chest pain, unspecified (principal)
CPT/HCPCS: 71010; 93005; Z7502; Z7610

== ENCOUNTER 2018-01-11 17:49 | Emergency (ER) | END 2018-01-12 00:44 | disposition home or self-care (01) ==

== ENCOUNTER 2018-03-25 15:44 | Emergency (ER) | END 2018-03-25 18:04 | disposition home or self-care (01) ==

== ENCOUNTER 2018-09-21 19:01 | Emergency (ER) | payer SELFPAY ==
[~2018-09-21] VITALS: Ht 154.9 cm; Wt 81.4 kg
[~2018-09-21 19:01] MED LIST changes: +ACET500C5 PO; +NAPR-985 PO
[2018-09-21 19:43] VITALS: BP 132/70; PULSE 74; RESP 20; Ht 154.9 cm; Wt 81.4 kg
== END 2018-09-21 22:31 | disposition left against medical advice (07) ==
LOC: FTE 19:01
DX: Z53.21 Procedure and treatment not carried out due to patient leaving prior to being seen by health care provider (principal)

== ENCOUNTER 2018-09-21 20:19 | Outpatient (CLI) | payer MEDICAID ==
[~2018-09-21] VITALS: Ht 149.9 cm; Wt 81.6 kg
[2018-09-21 21:15] VITALS: Ht 149.9 cm; Wt 81.6 kg
[2018-09-21 21:20] VITALS: BP 118/76; PULSE 66; RESP 18
--- NOTE | 2018-09-22 04:23 | TRIAGE ---
OB Triage Datetime Report Generated by CPN: 09/22/2018 04:23 Datetime: 09/21/2018 23:10 Stage of : OB Triage Datetime: 09/21/2018 21:55 Stage of : OB Triage Datetime: 09/21/2018 21:29 Stage of : OB Triage Labor Evaluation Frequency: 0 Monitor Mode: External Pattern: Normal: <= 5 Contractions in 10 Minutes Resting Tone [place]: Relaxed Heart Rate FHR Baseline Rate: 150 Datetime: 09/21/2018 20:59 Stage of : OB Triage Maternal Assessment Level of Consciousness: Fully Conscious Headache: Denies Blurred Vision: No Respiratory Effort: Unlabored Nausea/Vomiting: Denies RUQ Epigastric Pain: Denies Facial Edema: None Monitor Mode: External Resting Tone [place]: Relaxed Monitor Mode: External US Comments: FHT ACTIVE 150 Pain Assessment Pain Scale: 7 Pain Presence: Intermittent Pain Location: Abdomen Pain Assessment Comments: When she stands up or baby moves Datetime: 09/21/2018 20:30 Time of Arrival: 09/21/2018 20:05 EGA: 20.0 Arrived By: Ambulatory Arrived From: Home Chief Complaint: c/o lower abd/pelvic pain and SOB w/ cough x 2wks Movement: Present Contractions: Denies/Absent Rupture of Membranes: Denies Vaginal Bleeding: None Vaginal Discharge: Denies Recent Sexual Intercouse: Denies Abdominal Trauma: Not Applicable Patient Complaints: Cough; Shortness of Breath Time Provider Notified: 09/21/2018 21:30 Provider Notified: Dr Mock Initial Plan: EFM,UA,CVL
--- NOTE | 2018-10-03 14:27 | PN ---
Triage Information Date/Time service rendered on 09/21/18 10/03/18 0224 Reason for visit: Abd/pelvic pain Weeks of Gestation 20w /Para Diabetes: none Hypertention: none Additional information sob with cough for 2weeks Objective Heart Rate: 150's Contractions: None Results/Medications Imaging Results STEFANIE 4.8 MVP CVL 5.2 Disposition: Assessment/Plan IUP 20w URI Plan to ER for URI BIRD ADRIAN MD Oct 03, 2018 14:27
== END 2018-09-21 23:17 | disposition home or self-care (01) ==
LOC: OBT 20:19 → L-D 20:20 → OBT 23:17
PROVIDERS: ATTEND Obstetrics & Gynecology
DX: O26.892 Other specified pregnancy related conditions, second trimester (principal); Z3A.20 20 weeks gestation of pregnancy; R10.2 Pelvic and perineal pain
CPT/HCPCS: 76817; 81003; 87086; Z7500; G0463

== ENCOUNTER 2019-01-11 19:16 | Outpatient (CLI) | payer MEDICAID ==
[~2019-01-11] VITALS: Ht 152.4 cm; Wt 83.1 kg
[~2019-01-11 19:16] MED LIST changes: -ACET500C5 PO; -NAPR-985 PO
[2019-01-11 20:03] VITALS: BP 136/67; PULSE 100; RESP 18; Ht 152.4 cm; Wt 83.1 kg
--- NOTE | 2019-01-11 23:28 | PN ---
Triage Information Date/Time January 11, 2019 Reason for visit: Uterine contractions Weeks of Gestation 35w 6d /Para 8/5 Diabetes: none Hypertention: none Additional information Reports feeling lower abdominal pressure come and go. No bleeding or leaking. PMHx: GDM, diet controlled. PSHX; none. POBHx: x 5. NKDA. Objective Vital Signs Date Temp Pulse Resp B/P (MAP) Pulse Ox O2 O2 Flow FiO2 Time Delivery Rate 01/11/19 98.3 100 18 136/67 Room Air 20:03 (90) Heart Rate: 150's Heart Rate Comments Accels to 170 BPM. No decels. Contractions: None Exam Closed/thick/high/-3. Results/Medications Results 24 hrs Laboratory Tests Test 01/11/19 19:39 Urine Color YELLOW Urine Clarity CLEAR Urine pH 6.0 Urine Specific [place] 1.025 Urine Ketones TRACE A Urine Nitrite NEGATIVE Urine Bilirubin NEGATIVE Urine Urobilinogen NEGATIVE Urine Leukocyte Esterase NEGATIVE Urine Hemoglobin NEGATIVE Urine Glucose 3+ H Urine Total Protein NEGATIVE Imaging Results BPP 8/8 with an STEFANIE of 9.3 cm. VTX. Disposition: Discharge Assessment/Plan A: IUP at 35w 6d. False labor. P: D/C home. Labor precautions reviewed. Recommend a nice hot shower at home and a good night's sleep. ARTIS GUO MD Jan 11, 2019 23:28
--- NOTE | 2019-01-11 23:59 | TRIAGE ---
OB Triage Datetime Report Generated by CPN: 01/11/2019 23:59 Datetime: 01/11/2019 22:54 Labor Evaluation Frequency: X1 Monitor Mode: External Duration (sec)2399: 60 Pattern: Normal: <= 5 Contractions in 10 Minutes Resting Tone [place]: Relaxed Heart Rate FHR Baseline Rate: 125 Monitor Mode: External US Variability: Moderate 6-25 bpm Accelerations: 15X15 Decelerations: None Category: Category I Datetime: 01/11/2019 22:37 Monitor Mode: External US Datetime: 01/11/2019 21:15 Stage of : OB Triage Labor Evaluation Frequency: IRRITABILITY Monitor Mode: External Pattern: Normal: <= 5 Contractions in 10 Minutes Resting Tone [place]: Relaxed Heart Rate FHR Baseline Rate: 140 Monitor Mode: External US Variability: Moderate 6-25 bpm Accelerations: 15X15 Decelerations: None Category: Category I Datetime: 01/11/2019 20:10 Stage of : OB Triage Labor Evaluation Frequency: X1 Monitor Mode: External Duration (sec)2399: 60 Pattern: Normal: <= 5 Contractions in 10 Minutes Resting Tone [place]: Relaxed Heart Rate FHR Baseline Rate: 145 Monitor Mode: External US Variability: Moderate 6-25 bpm Accelerations: 15X15 Decelerations: None Category: Category I Datetime: 01/11/2019 20:04 Time of Arrival: 01/11/2019 19:09 EGA: 35.6 Arrived By: Wheelchair Arrived From: Home Chief Complaint: VAGINAL PRESSURE CONTRACTIONS Movement: Present Contractions: Irregular Rupture of Membranes: Denies Vaginal Bleeding: None Vaginal Discharge: Denies Recent Sexual Intercouse: Yes Abdominal Trauma: Not Applicable Patient Complaints: Contractions; Other Time Provider Notified: 01/11/2019 19:52 Provider Notified: DR. GUO Initial Plan: EFM, SVE, CALL OB Datetime: 01/11/2019 19:45 Vaginal Exam Dilatation (cms): 0.0 Effacement (%): 0 Station: -3 Exam By: Nikki RINALDI Vaginal Bleeding: None Cervix, Consistency: Firm Cervix, Position: Posterior Datetime: 01/11/2019 19:35 Stage of : OB Triage Maternal Assessment Level of Consciousness: Keenly Alert, Responsive DTR's/Clonus: DTRs 2+; No Clonus Headache: Denies Blurred Vision: No Respiratory Effort: Unlabored; Regular Rhythm; Equal Expansion Breath Sounds, Left: Clear and Equal Breath Sounds, Right: Clear and Equal Nausea/Vomiting: Denies RUQ Epigastric Pain: Denies Lower Extremities Edema: None Degree: None Upper Extremities Edema: None Degree: None Facial Edema: None Temperature Route: Oral Fall Risk Assessment History of Falling: (0) No Secondary Diagnosis: (0) No Ambulatory Aid: (0) Bedrest/Nurse Assist IV Therapy: (0) No Gait: (0) Normal/Bedrest/Immobile Mental Status: (0) Oriented to Own Ability Fall Score: 0 Fall Risk Score Definition: No Risk: No action required Pain Assessment Pain Scale: 9 Pain Presence: Constant Pain Type: Contraction; Pressure Pain Location: Abdomen; Perineum Datetime: 01/11/2019 19:33 Monitor Mode: External Contraction Comments: APPLIED Monitor Mode: External US Comments: APPLIED Datetime: 09/21/2018 20:30 EGA: 19.6 Additional Patient Complaints: Hx asthma (last attack 2yrs ago), and A!DM
== END 2019-01-11 23:27 | disposition home or self-care (01) ==
LOC: OBT 19:16 → L-D 19:17 → OBT 23:27
PROVIDERS: ATTEND Obstetrics & Gynecology
DX: O62.9 Abnormality of forces of labor, unspecified (principal); Z3A.35 35 weeks gestation of pregnancy
CPT/HCPCS: 76818; 81003; Z7500; G0463

== ENCOUNTER 2019-01-23 19:10 | Inpatient (IN) | payer MEDICAID ==
[~2019-01-23] VITALS: Ht 149.9 cm; Wt 83.3 kg
[2019-01-23 21:26] VITALS: BP 117/68; PULSE 77; RESP 17
[2019-01-24] MEDS ORDERED: LACTATED RINGER'S 1,000 ML IV PRN (00:12)
[2019-01-24] MEDS ORDERED: IBUPROFEN 600 MG TAB PO PRN (00:30)
[2019-01-24] MEDS ORDERED: BUTORPHANOL 2 MG INJ IV PRN ×2 (00:30)
[2019-01-24] MEDS ORDERED: MISOPROSTOL 200 MCG TAB PR PRN ×2 (00:30→13:30)
[2019-01-24] MEDS ORDERED: OXYTOCIN 30 UNITS/LR 500 ML IV PRN ×2 (00:30→13:30)
[2019-01-24] MEDS ORDERED: METHYLERGONOVINE 0.2 MG INJ IM PRN ×2 (00:30→13:30)
[2019-01-24] MEDS ORDERED: OXYTOCIN 30 UNITS/LR 500 ML IV SCH ×3 (00:30→13:09)
[2019-01-24] MEDS ORDERED: LIDOCAINE 1% (MPF) 30 ML INJ INJ PRN (00:30)
[2019-01-24] MEDS ORDERED: CARBOPROST 250 MCG INJ IM PRN ×2 (00:30→13:30)
--- NOTE | 2019-01-24 00:58 | TRIAGE ---
OB Triage Datetime Report Generated by CPN: 01/24/2019 00:58 Datetime: 01/24/2019 00:02 Stage of : OB Triage Pain Scale: 9 Pain Presence: Intermittent Pain Type: Contraction; Pressure Pain Location: Abdomen; Perineum Dilatation (cms): 4.0 Effacement (%): 80 Station: -2 Exam By: Dr Keenan Membrane Status: Intact Vaginal Bleeding: Normal Show Cervix, Consistency: Soft Cervix, Position: Posterior Presentation 'A': Cephalic Datetime: 01/23/2019 23:29 Stage of : OB Triage Monitor Mode: External Quality: Mild Resting Tone [place]: Relaxed FHR Baseline Rate: 135 Monitor Mode: External US FHR Baseline Changes: No Baseline Change Variability: Moderate 6-25 bpm Accelerations: 15X15 Category: Category I Pain Scale: 9 Pain Presence: Intermittent Pain Type: Contraction Pain Location: Abdomen Datetime: 01/23/2019 23:12 Stage of : OB Triage FHR Baseline Rate: 140 Monitor Mode: External US Datetime: 01/23/2019 22:47 Frequency: 140 Monitor Mode: External Quality: Mild Pattern: Normal: <= 5 Contractions in 10 Minutes Resting Tone [place]: Relaxed FHR Baseline Rate: 140 Monitor Mode: External US FHR Baseline Changes: No Baseline Change Variability: Moderate 6-25 bpm Accelerations: 15X15 Decelerations: None Category: Category I Membrane Status: Intact Datetime: 01/23/2019 21:49 Monitor Mode: External Quality: Mild Pattern: Normal: <= 5 Contractions in 10 Minutes Resting Tone [place]: Relaxed FHR Baseline Rate: 135 FHR Baseline Changes: No Baseline Change Variability: Moderate 6-25 bpm Accelerations: 15X15 Decelerations: None Category: Category I Datetime: 01/23/2019 20:48 Dilatation (cms): 4.0 Effacement (%): 80 Station: -2 Exam By: Latasha Monterroso Membrane Status: Intact Vaginal Bleeding: Scant Cervix, Consistency: Soft Cervix, Position: Posterior Presentation 'A': Cephalic Datetime: 01/23/2019 20:45 Stage of : OB Triage Monitor Mode: External Resting Tone [place]: Relaxed FHR Baseline Rate: 140 Monitor Mode: External US Pain Scale: 8 Pain Presence: Intermittent Pain Type: Contraction; Pressure Pain Location: Abdomen Datetime: 01/23/2019 20:44 Resting Tone [place]: Relaxed FHR Baseline Rate: 135 Monitor Mode: External US Datetime: 01/23/2019 20:00 Stage of : OB Triage Datetime: 01/23/2019 14:07 Time of Arrival: 01/23/2019 19:00 EGA: 37.4 Arrived By: Ambulatory Arrived From: Home Chief Complaint: c/o ucs and pressure. States was 4cm at clinic Movement: Present Contractions: Irregular Time Contractions Began: 01/23/2019 08:00 Contractions: q5 Rupture of Membranes: Denies Vaginal Bleeding: Scant Vaginal Discharge: Present Recent Sexual Intercouse: Denies Abdominal Trauma: Not Applicable Patient Complaints: Contractions Time Provider Notified: 01/23/2019 20:00 Provider Notified: Dr Keenan Initial Plan: EFM,SVE Datetime: 01/22/2019 20:27 Stage of : OB Triage Datetime: 01/22/2019 20:17 Stage of : OB Triage Datetime: 01/22/2019 20:11 Quality: Mild Pattern: Normal: <= 5 Contractions in 10 Minutes Resting Tone [place]: Relaxed FHR Baseline Rate: 130 Monitor Mode: External US FHR Baseline Changes: No Baseline Change Variability: Moderate 6-25 bpm Accelerations: 15X15 Decelerations: None Category: Category I Dilatation (cms): 3.0 Effacement (%): 70 Station: -2 Exam By: Latasha Monterroso Vaginal Bleeding: None Cervix, Consistency: Soft Cervix, Position: Posterior Presentation 'A': Cephalic
--- NOTE | 2019-01-24 02:43 | PREAC ---
Date/Time of Note Date/Time of Note DATE: 01/24/19 TIME: 02:42 Anesthesia Eval and Record Evaluation Time Pre-Procedure Interview DATE: 01/24/19 TIME: 02:42 Age 28 Sex female NPO: 8 hrs Preoperative diagnosis iup at 37 weeks Planned procedure labor epidural Past Medical History Past Medical History: Includes Heme: Anemia Surgery & Anesthesia Issues No known issue Meds Anticoagulation: No Beta Mikki within 24 hr: No Reason Beta Mikki not given: Pt. not on B-Mikki Reported Medications Ferrous Sulfate* (Ferrous Sulfate*) 325 Mg Tablet, 325 MG PO DAILY 12/17/12 Vits W-Ca,Fe,Fa(<1MG) () 1 Tab Tablet, 1 TAB PO 03/16/12 Current Medications Lactated Ringer's 1,000 ml @ 125 mls/hr Q8H IV ; Start 01/24/19 at 00:12 Butorphanol Tartrate (Stadol) 1 mg Q2H PRN IV .PAIN SCALE 1-5; Start 01/24/19 at 00:30 Butorphanol Tartrate (Stadol) 2 mg Q2H PRN IV .PAIN SCALE 6-10; Start 01/24/19 at 00:30 Lidocaine (Xylocaine 1% (Mpf)) 30 ml ONCE PRN INJ .EPISIOTOMY; Start 01/24/19 at 00:30 Oxytocin/Lactated Ringer's 500 ml @ 500 mls/hr ONCE POST IV ; Start 01/24/19 at 00:30 Oxytocin/Lactated Ringer's 500 ml @ 125 mls/hr POST IV ; Start 01/24/19 at 00:30 Ibuprofen (Motrin) 600 mg ONCE PRN PO .PAIN 1-5; Start 01/24/19 at 00:30 Lactated Ringer's 1,000 ml @ 2,000 mls/hr Q30M PRN IV .ANESTHESIA Last administered on 01/24/19at 01:45; Admin Dose 2,000 MLS/HR; Start 01/24/19 at 00:12 Oxytocin/Lactated Ringer's 500 ml @ 0 mls/hr ONCE PRN IV .VAGINAL BLEEDING; Start 01/24/19 at 00:30 Methylergonovine Maleate (Methergine) 0.2 mg ONCE PRN IM .VAGINAL BLEEDING; Start 01/24/19 at 00:30 Carboprost Tromethamine (Hemabate) 250 mcg ONCE PRN IM .VAGINAL BLEEDING; Start 01/24/19 at 00:30 Misoprostol (Cytotec) 1,000 mcg ONCE PRN MT .VAGINAL BLEEDING; Start 01/24/19 at 00:30 Meds reviewed: Yes Allergies Coded Allergies: No Known Allergy (Verified , 01/23/19) Allergies Reviewed: Yes Labs/Studies Labs Reviewed: Reviewed by anesthesiologist Result Diagram: 01/24/19 0041 Laboratory Tests 01/24/19 00:41 Blood Bank Test 01/24/19 00:41 Antibody Screen NEGATIVE Blood Type O POSITIVE Rh Immune Globulin Candidate NO test: Positive Pre-procedure Exam Last vitals Vital Signs Date Temp Pulse Resp B/P (MAP) Pulse Ox O2 O2 Flow FiO2 Time Delivery Rate 01/23/19 98.5 77 17 117/68 Room Air 21:26 (84) Airway: Adequate mouth opening, Adequate thyromental dist Mallampati: Mallampati I Teeth: Normal Lung: Normal Heart: Normal ASA Physical Status ASA physical status: 2 Emergency: None Planned Anesthetic Neuraxial: Epidural Planned Pain Management Parenteral pain med Pre-operative Attestations Prior to commencing anesthesia and surgery, the patient was re-evaluated, there was verification of: *The patient's identity *The results of appropriate recent lab work and preoperative vital signs *The above evaluation not changing prior to induction *Anesthetic plan, risk benefits, alternative and complications discussed with patient/family; questions answered; patient/family understands, accepts and wishes to proceed. LAZARA GARCIA Jan 24, 2019 02:43
[2019-01-24] MEDS ORDERED: FENTAnyl 2MCG/ML-ROPIV 0.2% 100 ML ONE (02:44)
[2019-01-24] MEDS: LACTATED RINGER'S 1,000 ML IV SCH ×2 (02:45→10:33)
[2019-01-24] MEDS ORDERED: FENTAnyl 2MCG/ML-ROPIV 0.2% 100 ML BAG EPI SCH (03:00)
[2019-01-24] MEDS ORDERED: NALOXONE (0.4 MG/ML) INJ IV PRN (03:00)
--- NOTE | 2019-01-24 10:11 | PAC ---
Date/Time of Note Date/Time of Note DATE: 01/24/19 TIME: 10:10 Post-Anesthesia Notes Post-Anesthesia Note Last documented vital signs Vital Signs Date Temp Pulse Resp B/P (MAP) Pulse Ox O2 O2 Flow FiO2 Time Delivery Rate 01/24/19 98.5 77 17 117/68 Room Air 1000 (84) Activity: WNL Respiratory function: WNL Cardiovascular function: WNL Mental status: Baseline Pain reasonably controlled: Yes Hydration appropriate: Yes Nausea/Vomiting absent: Yes LAZARA GARCIA Jan 24, 2019 10:11
--- NOTE | 2019-01-24 12:52 | HP ---
Date/Time of Note Date/Time of Note DATE: 01/24/19 TIME: 12:47 OB - History Hx of Present Free Text/Dictation Late entry note. Patient seen on 01/23/2019 28 years old 8 para 4-1-2-5 with single intrauterine at 37 weeks and 5 days complaining of uterine contractions. She states good movement. She denies nausea, vomiting, shortness of breath, chest pain, headache, visual changes, vaginal bleeding or LOF. Risk factors: -Diabetes mellitus: Controlled on diet -Baby with multiple congenital abnormality. 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 Blood Type: O+ Rubella: immune RPR/VDRL: Negative GBS Status: Negative HBsAG: Negative OB Admission Exam Vital Signs Vital Signs Vital Signs Date Temp Pulse Resp B/P (MAP) Pulse Ox O2 O2 Flow FiO2 Time Delivery Rate 01/23/19 98.5 77 17 117/68 Room Air 21:26 (84) Physical Exam HEENT: WNL Heart: Rhythm Normal Lungs: Clear Abdomen: WNL Extremities: Normal Cervical Dilatation: 4cm Effacement: 75% Station: -2 Membranes: Intact Heart Rate: 130's Accelerations: Accelerations Present Decelerations: No Decelerations Varibility: Moderate Contractions on Admission: < 5 Minutes Apart Last 72 hours Lab Results CBC & BMP 01/24/19 00:41 OB Assessment/Plan Other plan: 28 years old 8 para 4-1-2-5 with single intrauterine at 37 weeks and 5 days in labor -FHR: No sign of metabolic acidosis- Category I -Continuous EFM, toco -CBC, blood type and screen -Analgesia options with R/B/A discussed in detail with patient -Epidural per patient request -Please see the orders -O+/Rubella: Immune -GBS: Negative 2. Diabetes mellitus: Controlled on diabetic diet 3. 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 NICU team is aware Admission, procedures, expectations, risks and possible complications have been discussed in detail with the patient. Risk of vaginal delivery including but not limited to bleeding, infection, cervical laceration, placental retention, injury to fetus, blood transfusion, blood transfusion related infection, risk of anesthesia, adhesion, cervical laceration, episiotomy/laceration, possible delivery with risk of bleeding, infection, injury to other organs (bowel, bladder, ureter, vessels, nerves), injury to fetus, blood transfusion, blood transfusion related infection, risk of anesthesia, scar and hernia formation, needs for future , removal of uterus or any other indicated surgery discussed with the patient. She expressed understanding and repeats the risks. All of her questions were answered. She signed the informed consent. PHYSICIAN'S VERIFICATION OF INFORMED CONSENT The patient was counseled regarding the procedure, its indications, risks, potential complications and alternatives and any questions were answered. Consent was obtained. PLANNED PROCEDURE/TREATMENT: Vaginal delivery, episiotomy, repair of laceration possible delivery LAZ PRECIADO Jan 24, 2019 12:52
--- NOTE | 2019-01-24 12:56 | LDN ---
Date/Time of Note Date/Time of Note DATE: 01/24/19 TIME: 12:52 Delivery Summary 28 years old G 8 P4125 with single intrauterine at 37 weeks and 6 days delivered a viable male over intact perineum. Nose and mouth suction. There was nuchal cord x1 which reduced. Rest of body delivered. Cord clamp and cut after stopping pulsation. Baby given to the NICU team. Placenta delivered spontaneously and intact with three-vessel cord. There was no laceration. Patient tolerated procedure well Time of delivery 1124 Weight 3375 g - 7 pounds 7 ounces Apgars 7 at 1 minutes and 8 at 5 minutes EBL 150 mL Weeks of Gestation 37 weeks and 6 days Placenta Delivered: Spontaneously Meconium: none Anesthesia type: Epidural Estimated blood loss: 150 Sponge & Needle done & correct: Yes All needle counts correct: Yes Any foreign bodies felt in the: No Delivery Information Sex Infant Sex: male Apgars 1 Minute: 7 5 Minute: 8 10 Minute: 9 Suctioning Nose & mouth suctioned at [place]: Yes Umbilical Cord Umbilical cord with: 3 Vessels Cord presentations: nuchal cord Nuchal cord present X: 1 Cord Blood was obtained: Yes Mother & Baby Disposition Disposition Mom transferred to: Other Baby to NICU: Yes (Baby with congenital heart disease which was revealed during the echo) LAZ PRECIADO Jan 24, 2019 12:56
[2019-01-24 13:00] VITALS: BP 120/58; PULSE 80; RESP 18
[2019-01-24] MEDS ORDERED: LACTATED RINGER'S 1,000 ML IV* SCH (13:09)
[2019-01-24] MEDS: IBUPROFEN 600 MG TAB PO SCH ×2 (13:19→17:26)
[2019-01-24] MEDS ORDERED: BENZOCAINE 20% 56 ML SPRAY TOP PRN (13:30)
[2019-01-24] MEDS ORDERED: ONDANSETRON 4 MG INJ IV PRN (13:30)
[2019-01-24] MEDS ORDERED: ZOLPIDEM 5 MG TAB PO PRN (13:30)
[2019-01-24] MEDS ORDERED: SENNA/DOCUSATE NA (8.6MG/50MG) TAB PO PRN (13:30)
[2019-01-24] MEDS ORDERED: DIPHENHYDRAMINE 50 MG INJ IV PRN (13:30)
[2019-01-24] MEDS ORDERED: WITCH HAZEL/GLYCERIN PAD PR PRN (13:30)
[2019-01-24] MEDS ORDERED: LANOLIN HPA 1 PKT TOP PRN (13:30)
[2019-01-24] MEDS ORDERED: OXYCODONE/ASPIRIN (4.88/325) TAB PO PRN (13:30)
[2019-01-24] MEDS ORDERED: ACETAMINOPHEN 325 MG TAB PO PRN (13:30)
[2019-01-24] MEDS ORDERED: DIBUCAINE 1% 30 GM OINT TOP PRN (13:30)
[2019-01-24 17:23] VITALS: BP_SYST 129; PULSE 79; RESP 18
--- NOTE | 2019-01-24 17:25 | DS ---
Date/Time of Note Date/Time of Note DATE: 01/24/19 TIME: 17:19 Obstetrical Discharge Record Final Diagnosis Final Diagnosis: Term delivered Other Final Diagnosis 28 years old G 8 [id number] s/p normal vaginal delivery. She had uncomplicated vaginal delivery. Baby has multiple congenital heart disease. Baby is transferring to [facility]. She is planning to leave the hospital AMA. hemorrhage and preeclampsia with life-threatening situation discussed in detail with patient over the phone. She expressed understanding. All of her questions answered. She is currently afebrile. Vital sign is stable. Sign and symptom of preeclampsia discussed in detail. I strongly recommend come back to hospital with any issues. Vaginal Delivery Obstetrical Delivery: Spontaneous Condition on Discharge Physical Assessment Last Vitals: Vital Signs Date Temp Pulse Resp B/P (MAP) Pulse Ox O2 O2 Flow FiO2 Time Delivery Rate 01/24/19 98.2 80 18 120/58 Room Air 13:00 (78) Voiding: Yes Bowel Movement: Yes Breast: Soft, non-tender Fundus: Firm Calf Tenderness: No Patient Condition: Stable LAZ PRECIADO Jan 24, 2019 17:25
--- NOTE | 2019-01-25 14:38 | NSTRPT ---
NST Information Datetime Report Generated by CPN: 01/25/2019 14:38 Datetime: 01/23/2019 13:58 NST Information EGA: 37.4 Test Number: 5 Time on Monitor: 01/23/2019 15:40 Time off Monitor: 01/23/2019 16:06 NST Duration (Min): 26 Reason for NST: Diabetes Mellitus; Other Reason for NST Other: A1DM, VSD Test and Monitor Explained: Monitor Explained; Test Explained; Verbalized Understanding Pulse: 78 Resp: 18 SBP: 113 DBP: 66 Test Evaluation NST Interventions: None Patient States Movement: Present Contraction Frequency: NONE FHR Baseline : 135 Variability: Moderate 6-25bpm Accelerations: 15X15 Decelerations: None FHR Category: Category I NST Results: Reactive Comments: To u/s. STEFANIE 10.1cm. CEPHALIC. EFW:[id number]. 45%, AC:67%. Electronically Signed By E-Signature: with User ID: [id number] Datetime: 01/19/2019 14:07 NST Information EGA: 37.0 NST Duration (Min): 38 Datetime: 01/09/2019 08:51 NST Information EGA: 35.4 NST Duration (Min): 26 Datetime: 01/05/2019 09:57 NST Information EGA: 35.0 NST Duration (Min): 34 Datetime: 01/02/2019 13:58 NST Information EGA: 34.4 NST Duration (Min): 29
--- NOTE | 2019-01-25 18:56 | DELSUM ---
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 Babies in Womb: 1 Attempted: No Labor Anesthesia: Epidural LABOR INFORMATION Reason for Induction: Not Applicable Onset of Labor: 01/23/2019 20:48 Complete Dilatation: 01/24/2019 09:58 Oxytocin: N/A Group B Beta Strep: Negative Antibiotics # of Doses: 0 Steroids Given: None Reason Steroids Not Administered: Not Applicable MEMBRANES Membranes Rupture Method: Artificial Rupture of Membranes: 01/24/2019 10:17 Length of Rupture (hr): 1.12 Amniotic Fluid Color: Clear Amniotic Fluid Amount: Moderate Amniotic Fluid Odor: None STAGES OF LABOR Stage 1 hr: 13 Stage 1 min: 10 Stage 2 hr: 1 Stage 2 min: 26 Stage 3 hr: 0 Stage 3 min: 5 Total Time in Labor hr: 14 Total Time in Labor min: 41 VAGINAL DELIVERY Episiotomy: None Laceration Extension: N/A Laceration Type: None Laceration Repair: Not Applicable Initial Vag Sponge Count: 10 Final Vag Sponge Count: 10 Initial Vag Sharps Count: 1 Final Vag Sharps Count: 1 Sponge Count Correct: Yes; Vaginal Sweep Performed Sharps Count Correct: Yes BABY A INFORMATION Delivery Date/Time: 01/24/2019 11:24 Method of Delivery: Vaginal Born in Route : No : N/A Forceps: N/A Vacuum Extraction: N/A Shoulder Dystocia : No SHOULDER DYSTOCIA BABY A Delivery Date/Time: 01/24/2019 11:24 PRESENTATION/POSITION BABY A Presentation: Cephalic Cephalic Presentation: Vertex Vertex Position: Left Occipital Anterior Breech Presentation: N/A PLACENTA INFORMATION BABY A Placenta Delivery Time : 01/24/2019 11:29 Placenta Method of Delivery: Spontaneous Placenta Status: Delivered SCORES BABY A Heart Rate 1 min: >100 bpm Resp Effort 1 min: Good Cry Reflex Irritability 1 min: Cough/Sneeze/Pulls Away Muscle Tone 1 min: Some Flexion of Extrem Color 1 min: Blue/Pale SCORE 1 MIN: 7 Heart Rate 5 min: >100 bpm Resp Effort 5 min: Good Cry Reflex Irritability 5 min: Cough/Sneeze/Pulls Away Muscle Tone 5 min: Active Motion Color 5 min: Blue/Pale SCORE 5 MIN: 8 INFORMATION BABY A Gestational Age at Delivery: 37.5 Gestational Status: Early Term- 37- 38.6 Weeks Infant Outcome : Liveborn, with signs of life Condition : Stable Infant Sex: Male IDENTIFICATION/MEDS BABY A ID Band Number: [id number] ID Band Location: Right Leg; Left Arm Sensor Applied: Yes Sensor Number: [id number] Sensor Location : Cord Clamp Vitamin K Given : Not Given Erythromycin Given: Not Given WEIGHT/LENGTH BABY A Infant Birthweight (gm): 3375 Weight (lb): 7 Infant Weight (oz): 7 Infant Length (in): 19.00 Infant Length (cm): 48.26 CORD INFORMATION BABY A No. Cord Vessels: 3 Nuchal Cord : Around Neck x1, Loose Cord Blood Taken: Yes Infant Suction: Mouth; Nose ASSESSMENT BABY A Complications: None Physical Findings at Delivery: Molding of the Head; Within Normal Limits Herbicide Service Sales Representative/ALS Called : Yes Care By: DIANA/NAIN VINCENT Transferred To: NICU
[2019-01-26] MEDS ORDERED: DIPHTH/TET/ACEL PERTUSS (ADULT) 0.5 ML VIAL IM* ONE (09:00)
[2019-01-26] MEDS ORDERED: MEASLES,MUMPS,RUBELLA VACCINE INJ SC* ONE (09:00)
== END 2019-01-24 17:42 | disposition left against medical advice (07) | DRG 805 ==
LOC: OBT 19:10 → L-D 19:11 → OBT 01-24 00:05 → L-D 01-24 00:05 → PP1 01-24 12:56
PROVIDERS: ADMIT Obstetrics & Gynecology; ATTEND Obstetrics & Gynecology
PROC: 10E0XZZ Delivery of Products of Conception, External Approach (ICD-10-PCS; principal; 2019-01-24)
DX: O69.81X0 Labor and delivery complicated by cord around neck, without compression, not applicable or unspecified (principal); O24.12 Pre-existing type 2 diabetes mellitus, in childbirth; Z37.0 Single live birth; E11.9 Type 2 diabetes mellitus without complications; Z3A.37 37 weeks gestation of pregnancy
CPT/HCPCS: 62322; 81001; 85025; 85610; 85730; 86592; 86850; 86900; 86901; 87340; 99464; G0463; J2210; J2590; J3010; J7120